=== PATIENT | female | born 1990 | race Caucasian/White ===

== ENCOUNTER 2017-09-19 09:08 | Inpatient (IN) | payer OTHER ==
[2017-09-19 10:06] LABS: BASO % 0.3 % (0.0-1.0); EOS # 0.1 10^3/uL (0.0-0.50); EOS % 0.9 % (0.0-3.0); HEMATOCRIT 44.1 % (36.0-47.0); HEMOGLOBIN 14.8 g/dl (12.0-16.0); IMMATURE GRANULOCYTE % 0.4 % (0-3.0); LYMPH # 2.7 10^3/uL (1.5-6.5); LYMPH % 19.9 % (24.0-44.0); MEAN CORPUSCULAR HGB CONC 33.6 g/dl (32.0-36.5); MEAN CORPUSCULAR VOLUME 89.3 fl (80.0-96.0); MONO # 0.7 10^3/uL (0.0-0.8); MONO % 4.9 % (0.0-5.0); NEUTROPHILS # 9.8 10^3/uL (1.8-7.7); NEUTROPHILS % 73.6 % (36.0-66.0); PLATELET COUNT, AUTOMATED 366 10^3/uL (150-450); RED BLOOD COUNT 4.94 10^6/uL (4.00-5.40); RED CELL DISTRIBUTION WIDTH 12.4 % (11.5-14.5); WHITE BLOOD COUNT 13.3 10^3/uL (4.0-10.0)
[2017-09-19 10:26] LABS: ANION GAP 7 MEQ/L (8-16); BLOOD UREA NITROGEN 12 MG/DL (7-18); CALCIUM LEVEL 9.4 MG/DL (8.5-10.1); CARBON DIOXIDE LEVEL 24 MEQ/L (21-32); CHLORIDE LEVEL 106 MEQ/L (98-107); CREATININE FOR GFR 0.73 MG/DL (0.55-1.30); GLOMERULAR FILTRATION RATE > 60.0 (>60); GLUCOSE, FASTING 98 MG/DL (70-100); POTASSIUM SERUM 4.1 MEQ/L (3.5-5.1); SODIUM LEVEL 137 MEQ/L (136-145)
[2017-09-19 11:43] LABS: C REACTIVE PROTEIN QUANTITATIV 1.04 MG/DL (0.00-0.30)
[2017-09-19 12:00] LABS: ERYTHROCYTE SEDIMENTATION RATE 4 mm/hr (0-20)
[2017-09-19] MEDS ORDERED: ONDANSETRON 4MG/2ML VIAL (J2405) As Ordered ×2 (18:19→19:34)
[2017-09-19] MEDS ORDERED: LIDOCAINE 2% INJ 100 MG/5 ML SDV (FOR ANES.) As Ordered (18:19)
[2017-09-19] MEDS ORDERED: MIDAZOLAM INJ 2 MG/2 ML VIAL (J2250) As Ordered (18:19)
[2017-09-19] MEDS ORDERED: METOCLOPRAMIDE INJ 10MG/2ML VIAL (J2765) As Ordered (18:19)
[2017-09-19] MEDS ORDERED: fentaNYL 100 MCG/2 ML INJECTION (J3010) As Ordered ×3 (18:19→19:33)
[2017-09-19] MEDS ORDERED: PROPOFOL 200 MG/20 ML VIAL As Ordered ×2 (18:19→18:25)
[2017-09-19] MEDS ORDERED: DESFLURANE 240 ML INHALANT As Ordered (18:30)
[2017-09-19] MEDS: VANCOMYCIN 1000 MG/20 ML VIAL (J3370) As Ordered (18:35)
[2017-09-19] MEDS: ceFAZolin 1GM INJ (J0690 PER 500MG) As Ordered (18:35)
[2017-09-19] MEDS: LIDOCAINE 1% SDV INJ 30 ML VIAL As Ordered (19:08)
[2017-09-19] MEDS: BUPIVACAINE HCL 0.25% 30 ML VIAL As Ordered (19:08)
[2017-09-19] MEDS ORDERED: MEPERIDINE 50 MG/ML 1ML VIAL (J2175) As Ordered (19:13)
[2017-09-19] MEDS ORDERED: PERCOCET 5MG/325MG TAB As Ordered ×2 (19:33→19:57)
[2017-09-19] MEDS: PERCOCET 5MG/325MG TAB PO ×2 (19:36→20:06)
[2017-09-19] MEDS: fentaNYL 100 MCG/2 ML INJECTION (J3010) IV ×4 (19:36→20:05)
[2017-09-19] MEDS: ONDANSETRON 4MG/2ML VIAL (J2405) IV (19:36)
[2017-09-19] MEDS ORDERED: LR 1,000 ML IV (19:45)
[2017-09-19] MEDS ORDERED: ONDANSETRON 4MG/2ML VIAL (J2405) IV (19:45)
[2017-09-19] MEDS: DOCUSATE SODIUM 100 MG CAP PO (21:09)
[2017-09-19] MEDS: NAPROXEN 250 MG TAB PO (21:09)
[2017-09-20] MEDS: VANCOMYCIN HCL 1,000 MG, VIAL MATE ADAPTER 1 EACH in D5W 250 ML IV ×3 (02:14→18:16)
[2017-09-20] MEDS: DOCUSATE SODIUM 100 MG CAP PO ×2 (08:01→20:12)
[2017-09-20] MEDS: NAPROXEN 250 MG TAB PO ×2 (08:02→20:12)
[2017-09-20] MEDS: ASPIRIN 325 MG TAB PO (09:24)
[2017-09-20] MEDS: PERCOCET 5MG/325MG TAB PO ×2 (09:33→18:26)
[2017-09-21] MEDS: VANCOMYCIN HCL 1,000 MG, VIAL MATE ADAPTER 1 EACH in D5W 250 ML IV (02:35)
[2017-09-21] MEDS: PERCOCET 5MG/325MG TAB PO (03:15)
[2017-09-21 06:47] LABS: HEMATOCRIT 34.4 % (36.0-47.0); MEAN CORPUSCULAR HEMOGLOBIN 29.6 pg (27.0-33.0); MEAN CORPUSCULAR HGB CONC 32.6 g/dl (32.0-36.5); PLATELET COUNT, AUTOMATED 268 10^3/uL (150-450); RED BLOOD COUNT 3.78 10^6/uL (4.00-5.40); RED CELL DISTRIBUTION WIDTH 12.4 % (11.5-14.5); WHITE BLOOD COUNT 9.9 10^3/uL (4.0-10.0)
[2017-09-21 06:51] LABS: HEMOGLOBIN 11.2 g/dl (12.0-16.0)
[2017-09-21 07:02] LABS: C REACTIVE PROTEIN QUANTITATIV 2.21 MG/DL (0.00-0.30)
[2017-09-21 07:16] LABS: ERYTHROCYTE SEDIMENTATION RATE 15 mm/hr (0-20)
[2017-09-21] MEDS: ASPIRIN 325 MG TAB PO (08:30)
[2017-09-21] MEDS: DOCUSATE SODIUM 100 MG CAP PO (08:30)
[2017-09-21] MEDS: NAPROXEN 250 MG TAB PO (08:30)
== END 2017-09-21 10:00 | disposition home or self-care (01) | DRG 858 ==
LOC: M ED 09:08 → M ED INP 12:00 → M PED 15:52
PROC: 0JBP0ZZ Excision of Left Lower Leg Subcutaneous Tissue and Fascia, Open Approach (ICD-10-PCS; principal; 2017-09-19 12:18)
DX: T81.4XXA Infection following a procedure, initial encounter (principal); Y83.8 Other surgical procedures as the cause of abnormal reaction of the patient, or of later complication, without mention of misadventure at the time of the procedure; Z87.891 Personal history of nicotine dependence; Z79.82 Long term (current) use of aspirin; Z79.891 Long term (current) use of opiate analgesic